=== PATIENT | female | born 2000 | race Caucasian/White ===

== ENCOUNTER 2021-01-24 12:22 | Emergency (ER) | payer OTHER, SELFPAY ==
[2021-01-24 12:37] VITALS: BP 113/63; PULSE 67; RESP 16; TEMP 36.8; O2SAT 98
--- NOTE | 2021-01-24 13:28 | ED.SKABFB ---
HPI - Skin/Abscess/Foreign Bdy General Chief complaint: Skin/Abscess/Foreign Body Stated complaint: RASH TO TOP OF R FOOT Source: patient and RN notes reviewed Limitations: no limitations History of Present Illness HPI narrative: The patient, previously mostly healthy, presents with skin eruption. 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 No prior/other rashes, streaking, discharge, abscess/induration. She had prior skin eruption that cleared with stress last month; as the eruption looks vesicular-though thick walled-will treat infectious causes broadly . Related Data Allergies Allergy/AdvReac Type Severity Reaction Status Date / Time No Known Allergies Allergy Verified 01/24/21 12:51 Review of Systems Review of Systems: General/Constitutional: No weight loss,fever Eyes: N0: Redness,discharge Ears/Nose/Throat: No: Epistaxis,ear discharge Respiratory: Denies: Hemoptysis Gastrointestinal: No Vomiting, Bleeding-rectal Skin: No Lumps, REPORTS eruption Neurologic: No Focal Weakness,Sz Hematologic: Denies: Petechiae/Purpura Psychiatric: No: Suicida ideationl All Other Systems: Reviewed and Negative PMFSH Comments At time of signature, agree with nursing past medical, surgical, social and family history. There is no relevant family history pertinent to the presenting complaint Exam Narrative: General Appearance: Well nourished, Normocephalic,, Conjunctiva clear Mouth/Throat: Normal appearing, Supple;Airway patent Musculoskeletal: Moves all extremities, Non tender Skin: Warm, Dry half-dollar size papulovesicular eruption with thick-walled vesicles on the extensor aspect of the foot on erythematous base. Neurological: A&O x3, Normal affect Course Vital Signs Vital signs: Vital Signs Temperature 98.3 F 01/24/21 12:37 Pulse Rate 67 01/24/21 12:37 Respiratory Rate 16 01/24/21 12:37 Blood Pressure 113/63 01/24/21 12:37 Pulse Oximetry 98 01/24/21 12:37 Temperature 98.3 F 01/24/21 12:37 Pulse Rate 67 01/24/21 12:37 Respiratory Rate 16 01/24/21 12:37 Blood Pressure 113/63 01/24/21 12:37 Pulse Oximetry 98 01/24/21 12:37 MDM - Skin/Abscess/Foreign Bdy Lab Data Labs: Lab Results 01/24/21 Range/Units 13:25 CMV Rapid Culture Pending HSV & VZV Rapid Cultur Pending Virus Culture Pending Discharge Plan Discharge Clinical Impression: Acute vesicular dermatitis Patient Disposition: Home, Self-Care Condition: Stable Instructions: Antibiotic Form Additional Instructions: Keep photo log of area See dermatology in follow-up if not improved Prescriptions: New clindamycin HCl 300 mg capsule 300 mg PO TID Qty: 15 RF: 0 mupirocin 2 % ointment 1 applic TOPICAL TID Qty: 30 RF: 0 fluconazole 150 mg tablet 150 mg PO WEEKLY Qty: 2 RF: 1 valacyclovir [Valtrex] 1 gram tablet 1,000 mg PO TID Qty: 20 RF: 0 Follow-up/Referrals: PHYSICIAN NOT ON STAFF,NONSTAFF [Primary Care Provider] -
== END 2021-01-24 13:45 | disposition home or self-care (01) ==
PROVIDERS: Emergency Provider Emergency Medicine
DX: B00.1 Herpesviral vesicular dermatitis (principal)
CPT/HCPCS: 87070; 87075; 87205; 87252; 99203; G0463